=== PATIENT | female | born 1990 | race Caucasian/White ===

== ENCOUNTER 2017-11-25 19:32 | Emergency (ER) | payer OTHER ==
--- NOTE | 2017-11-25 21:40 | ED Physician Documentation ---
PD HPI FEMALE - Stated complaint Stated Complaint: FEMAL - Chief complaint Chief Complaint: Abd Pain - History obtained from History obtained from: Patient - History of Present Illness Timing - onset: Enter time (19:00), Today Timing - details: Abrupt onset Pain level max: 8 Pain level max: 5 Associated symptoms: Vaginal pain. No: Fever, Vaginal bleeding, Vaginal discharge, Dysuria, Urinary frequency Contributing factors: IUD. No: Similar symptoms before: Has not had sx before Recently seen: Not recently seen - Additional information Additional information: sudden onset cramping pain, vaginal pain and across anterior pelvis but predominantly midline. Onset 7 PM tonight during intercourse. Pain waxes and wanes, worse with movement. Denies h/o similar symptoms Review of Systems Constitutional: denies: Fever GI: denies: Abdominal Pain (pelvic pain but not abdominal pain per se), Nausea, Vomiting : denies: Dysuria, Frequency, Vaginal bleeding, Now EGA PD PAST MEDICAL HISTORY - Past Medical History Past Medical History: No FILM READER: None - Past Surgical History Past Surgical History: No - Present Medications Home Medications: Ambulatory Orders Medication Instructions Recorded Confirmed Prenatl Vit6/Iron/FA/B12/Ca/D3 1 tab PO DAILY 11/25/17 11/25/17 [Mteryti Combo Pack] HYDROcod/ACETAM 5/325 [[place] 5/325] 1 - 2 ea PO Q6H PRN #15 tablet 11/26/17 - Allergies Allergies/Adverse Reactions: Allergies Allergy/AdvReac Type Severity Reaction Status Date / Time No Known Drug Allergies Allergy Verified 11/25/17 19:37 - Social History Does the pt smoke?: No Smoking Status: Never smoker PD ED PE NORMAL - Vitals Vital signs reviewed: Yes - General General: Alert and oriented X 3, No acute distress, Well developed/nourished - Cardiac Cardiac: RRR, No murmur - Respiratory Respiratory: No respiratory distress, Clear bilaterally - Abdomen Abdomen: Soft, Non distended, Other (mild/moderate midline suprapubic tenderness to palpation, with minimal right anterior pelvic tenderness to palpation) - Back Back: No CVA TTP Results - Vitals Vitals: Vital Signs - 24 hr 11/25/17 19:35 Temperature 36.0 C L Heart Rate 74 Respiratory 18 Rate Blood Pressure 116/77 O2 Saturation 97 Oxygen O2 Source Room air - Rads (name of study) pelvic/TV US Radiology: Prelim report reviewed, See rad report PD MEDICAL DECISION MAKING - ED course Complexity details: reviewed results, re-evaluated patient, considered differential, d/w patient ED course: Patient declined analgesics. Departure - Departure Disposition: 01 Home, Self Care Clinical Impression: Ruptured cyst of ovary Condition: Good Instructions: ED Cyst Ovarian Follow-Up: FLAIVA MIRZA MD [Primary Care Provider] - (3-4 days if symptoms persist) Prescriptions: HYDROcod/ACETAM 5/325 [[place] 5/325] 1 - 2 ea PO Q6H PRN #15 tablet PRN Reason: Pain Discharge Date/Time: 11/26/17 01:19
[2017-11-25 21:43] LABS: BILIRUBIN,URINE NEGATIVE (NEGATIVE); GLUCOSE, URINE (UA) NEGATIVE (NEGATIVE); KETONES,URINE (UA) NEGATIVE (NEGATIVE); LEUKOCYTE ESTERASE, URINE NEGATIVE (NEGATIVE); NITRITE,URINE NEGATIVE (NEGATIVE); OCCULT BLOOD,URINE NEGATIVE (NEGATIVE); PH,URINE 6.5 PH (5.0-7.5); PROTEIN,URINE NEGATIVE (NEGATIVE); UROBILINOGEN,URINE 0.2 (NORMAL) E.U./dL (NORMAL)
[2017-11-25 21:46] LABS: CLARITY,URINE CLEAR (CLEAR); HCG UR QUAL NEGATIVE
[2017-11-25 22:29] LABS: BASOPHILS # (AUTO) 0.1 10^3/uL (0.0-0.1); BASOPHILS % (AUTO) 0.6 %; EOSINOPHILS # (AUTO) 0.2 10^3/uL (0.0-0.7); EOSINOPHILS % (AUTO) 2.5 %; HGB - HEMOGLOBIN 11.9 g/dL (12.0-16.0); LYMPHOCYTES # (AUTO) 3.2 10^3/uL (1.5-3.5); LYMPHOCYTES % (AUTO) 35.8 %; MEAN CORPUSCULAR HEMOGLOBIN 28.3 pg (27.0-31.0); MEAN CORPUSCULAR VOLUME 85.6 fL (81.0-99.0); MEAN PLATELET VOLUME 6.9 fL (7.9-10.8); MONOCYTES # (AUTO) 0.7 10^3/uL (0.0-1.0); MONOCYTES % (AUTO) 7.9 %; NEUTROPHILS # (AUTO) 4.7 10^3/uL (1.5-6.6); NEUTROPHILS % (AUTO) 53.2 %; PLT - PLATELET COUNT 282 10^3/uL (130-450); RED CELL DISTRIBUTION WIDTH 14.3 % (12.0-15.0); WHITE BLOOD COUNT 8.8 x10^3/uL (4.8-10.8)
[2017-11-25 22:38] LABS: CALCIUM 9.2 mg/dL (8.5-10.3); CREATININE 0.8 mg/dL (0.4-1.0)
--- NOTE | 2017-11-26 00:05 | Ultrasound Report ---
Reason: pelvic pain Procedure Date: 11/25/2017 Accession Number: [id number] / [id number] Procedure: US - Pelvic Complete CPT Code: FULL RESULT: EXAM: PELVIC ULTRASOUND EXAM DATE: 11/25/2017 11:58 PM. CLINICAL HISTORY: Pelvic pain. COMPARISON: None. TECHNIQUE: Realtime transabdominal pelvic scan performed to identify the uterus and adnexa and as an overview of other pelvic structures, followed by transvaginal scan to provide greater detail of the uterus and adnexa, with static image documentation. FINDINGS: Uterus: 7.3 x 5.5 x 3.2 cm, volume 67 cc. Retroverted position. Normal overall size and echotexture. Masses: None. Endometrium: 10 mm. IUD is present in the endometrial canal. Cervix: Unremarkable. Right Ovary: 4.9 x 4.9 x 3.2 cm, volume 40 cc. There is a 3.0 x 2.8 x 1.6 cm hemorrhagic right ovarian cyst present. Normal flow is seen to the surrounding ovarian parenchyma. Left Ovary: 3.4 x 2.3 x 2.1 cm, volume 9 cc. Normal echotexture and blood flow. Free Fluid: Small amount. Other: None. IMPRESSION: 3.0 cm hemorrhagic right ovarian cyst. Normal ovarian flow. Small amount of free fluid. IUD present in the endometrial canal. [facility]
[2017-11-26] MEDS ORDERED: HYDROcod/ACET 5/325 Prepack 4 PO STA (01:10)
[2017-11-26 01:19] VITALS: BP 116/78
== END 2017-11-26 01:19 | disposition home or self-care (01) ==
LOC: ED 19:32
DX: N83.209 Unspecified ovarian cyst, unspecified side (principal); Z97.5 Presence of (intrauterine) contraceptive device
CPT/HCPCS: 36415; 76830; 76856; 80048; 81001; 81003; 81025; 85025; 87086; 99283